=== PATIENT | male | born 1965 | race Caucasian/White ===

== ENCOUNTER 2019-12-04 09:29 | Inpatient (IN) | payer OTHER, SELFPAY ==
[2019-12-04] VITALS (14 sets, daily range): BP systolic 122–173; BP diastolic 72–104; PULSE 71–84; RESP 11–20; TEMP 36.5–36.9; O2SAT 93–99
--- NOTE | 2019-12-04 | ECHO_ITS ---
Patient Info Name: Kalpesh Adams Age: 54 years : 1965 Gender: Male Ht: 75 in Wt: 276 lbs BSA: 2.61 m2 HR: 69 bpm BP: 138 / 72 mmHg Heart Rhythm: Sinus Rhythm Technical Quality: Good Exam Date: 12/04/2019 1:29 PM Exam Location: [facility] Patient Status: Inpatient Admit Date: 12/04/2019 Staff Ordering Physician: Duy Durant MD [employer] Supervisor: Jovanni Garza RDCS Attending Provider: Duy Durant MD Exam Type: CA echo doppler color flow Study Info Indications R07.9 - Chest pain, unspecified Complete two-dimensional, color flow and Doppler transthoracic echocardiogram is performed. History/Risk Factors Chest pain; HTN, CAD, murmur. Summary 1. Left ventricular systolic function is normal, estimated at 65-70%. 2. The left ventricular diastolic function is normal. Left Ventricle Left ventricular chamber dimension is normal. Left ventricular systolic function is normal, estimated at 65-70%. There is no increased left ventricular wall thickness. Left ventricular septal wall motion is normal. The left ventricular diastolic function is normal. Right Ventricle Right ventricular chamber dimension is normal. Right ventricular systolic function is normal. Left Atria Left atrial chamber dimension is normal. Right Atria Right atrial chamber dimension is normal. Aortic Valve The aortic valve is trileaflet. There is no aortic valve sclerosis. There is no aortic valve stenosis. There is no aortic valve regurgitation. Pulmonic Valve The pulmonic valve is normal. There is no pulmonic valve stenosis. There is no pulmonic regurgitation. Mitral Valve The mitral valve has normal leaflets. There is no mitral valve stenosis. There is no mitral valve regurgitation. Tricuspid Valve The tricuspid valve leaflets are normal. There is no significant tricuspid valve stenosis. There is no tricuspid valve regurgitation. Pericardium/Pleural The pericardium appears normal. There is no pericardial effusion. Aorta The aortic root size at the sinus of Valsalva is normal. The prox ascending aorta size is normal. Left Ventricular Outflow Tract Name Value Normal LVOT 2D LVOT Diameter 2.0 cm LVOT Doppler LVOT Peak Gradient 5 mmHg LVOT Mean Gradient 3 mmHg LVOT VTI 22 cm LVOT VTI/AV VTI Ratio 0.9 LVOT Stroke Volume 66 ml LVOT CO 4.6 l/min LVOT CI 1.8 l/min/m2 Mitral Valve Name Value Normal MV Doppler MV Decel [place] 330 cm/s2 MV PHT 52 ms MV Area (PHT) 4.2 cm2 4.0-5.0 MV Diastolic Function
--- NOTE | ~2019-12-04 | XR_ITS ---
EXAMINATION: XR chest 2V EXAM DATE: 12/04/2019 10:02 INDICATION: Mid chest pain. TECHNIQUE: Frontal and lateral projections of the chest obtained and reviewed. Comparison is made to prior examination from 11/23/2016. FINDINGS: The lungs are clear. There are no pleural effusions. The cardiomediastinal silhouette is within normal limits. There is no pneumothorax suspected. Some bridging lower thoracic endplate ost eophytes. IMPRESSION: No acute cardiopulmonary findings. Reviewed, dictated and finalized at location A.
--- NOTE | 2019-12-04 09:34 | ECG_ITS ---
Measurements Intervals [place] Rate: 78 P: 16 NE: 117 QRS: -22 QRSD: 114 T: 76 QT: 341 QTc: 390 Interpretive Statements SINUS RHYTHM WITH SHORT NE INTERVAL INTRAVENTRICULAR CONDUCTION DELAY NONSPECIFIC ST & T-WAVE ABNORMALITY- LATERAL LEADS BASELINE ARTIFACT- I, II, III, AVR, AVL, AVF BORDERLINE ECG Electronically Signed On 12-04-2019 9:56:15 CDT by Nelson Escobar D.O.
[2019-12-04 09:50] LABS: Basophils Absolute Auto 0.1 K/mm3 (0.0-0.1); Basophils Percent Auto 0.9 % (0.2-1.2); Eosinophils Absolute Auto 0.5 K/mm3 (0-0.3); Eosinophils Percent Auto 5.5 % (0-4.4); Hematocrit 44.8 % (42.0-52.0); Hemoglobin 15.8 g/dL (14.0-18.0); Immature Granulocyte Absolute 0.03 K/mm3 (0.00-0.031); Immature Granulocyte Percent A 0.3 % (0-0.5); Lymphocytes Absolute Auto 3.71 K/mm3 (0.9-3.2); Lymphocytes Percent Auto 41.2 % (18.3-44.2); Mean Corpuscular HGB Conc 35.3 g/dl (32-36); Mean Corpuscular Hemoglobin 30.7 pg (26-34); Mean Corpuscular Volume 87.2 fl (80-100); Mean Platelet Volume 9.6 fl (7.4-10.4); Monocytes Absolute Auto 0.9 K/mm3 (0.1-0.6); Monocytes Percent Auto 10.4 % (2.6-8.5); Neutrophils Absolute Auto 3.8 K/mm3 (1.3-6.7); Neutrophils Percent Auto 41.7 % (45.5-73.1); Platelet Count Result 236 k/mm3 (150-375); Red Blood Count 5.14 M/mm3 (4.6-6.20); Red Cell Distribution Width 12.8 % (11.5-14.5)
[2019-12-04 10:00] LABS: Prothrombin Time 12.9 Seconds (11.1-14.7)
[2019-12-04] MEDS: ASPIRIN 81 MG CHEWABLE TABLET 324 MG PO (10:00)
[2019-12-04 10:01] LABS: Blood Urea Nitrogen 16 mg/dL (9-20); Calcium 9.4 mg/dL (8.4-10.2); Carbon Dioxide 24 mmol/L (22-30); Chloride 104 mmol/L (98-107); Estimated CRCL calculation 146 ml/min; Estimated Glomerular Filt Rate > 60; Glucose 101 mg/dL (75-110); Potassium 3.8 mmol/L (3.4-5.0); Sodium 137 mmol/L (137-145)
--- NOTE | 2019-12-04 10:03 | ECG_ITS ---
Measurements Intervals [place] Rate: 75 P: 43 WI: 159 QRS: -28 QRSD: 99 T: 26 QT: 349 QTc: 392 Interpretive Statements SINUS RHYTHM BASELINE ARTIFACT- I, II, AVR, AVL, AVF NORMAL ECG Electronically Signed On 12-04-2019 10:44:23 CDT by Nelson Escobar D.O.
[2019-12-04 10:13] LABS: Troponin I < 0.012 ng/mL (0.000-0.034)
--- NOTE | 2019-12-04 10:19 | ED.CHESTPAIN ---
HPI - Chest Pain General Chief Complaint: Chest Pain Stated Complaint: cp Time Seen by Provider: 12/04/19 09:55 Source: patient Mode of arrival: ambulatory Limitations: no limitations History of Present Illness HPI narrative: This patient is a 54 year old male with h/o hypertension who presents for evalution of midsternal chest pressure that started 45 minutes ago. He states he was at rest when developed pressure in his chest that radiates to his back. He also reports he was sweating and his left arm feels numbness. He thinks it may be indigestion because he feels like he needs to belch. He was given aspirin 324 mg in ER today. He rates his pain 6/10. He denies previous history of MT and he had cardiac catherization 2 years ago. He states he was told he may have had less than 15 % blockage at that time. MD complaint: chest heaviness Onset (ago): minute(s) (45) Timing of current episode: constant Onset: during rest Pain location: substernal Pain radiation: back Pain scale (0-10): 6 Quality: heaviness Relieving factors: nothing Exacerbating factors: nothing Risk Factors Coronary artery disease risk factors: hypertension Related Data Home Medications Medication Instructions Recorded Confirmed fish,bora,flax oils-om3,6,9no1 1 cap PO DAILY 12/04/19 12/04/19 [Triple [place] 3-6-9] hydrochlorothiazide 25 mg PO DAILY 12/04/19 12/04/19 magnesium oxide 400 mg PO DAILY 12/04/19 12/04/19 metoprolol succinate 50 mg PO DAILY 12/04/19 12/04/19 pantoprazole 40 mg PO DAILY 12/04/19 12/04/19 rosuvastatin 10 mg PO EVERY OTHER DAY 12/04/19 12/04/19 spironolactone 25 mg PO DAILY 12/04/19 12/04/19 Allergies Allergy/AdvReac Type Severity Reaction Status Date / Time No Known Allergies Allergy Verified 12/04/19 12:25 Review of Systems Review of Systems: All systems reviewed & are unremarkable except as noted in HPI and below Constitutional: Constitutional: Denies chills, Reports excessive sweating and Denies fever(s) Cardiovascular: Cardiovascular: Reports chest pain Respiratory: Respiratory: Denies cough, Reports dyspnea and Denies wheezing Gastrointestinal: Gastrointestinal: Denies abdominal pain, Denies diarrhea, Denies nausea and Denies vomiting PMFSH Past Medical History Medical History (Updated 12/04/19 @ 11:20 by Duy Durant MD) Hypertension Surgical History Surgical History (Updated 12/04/19 @ 10:19 by Nadira Cody MD) H/O cardiac catheterization Social History Social History Smoking packs per day: 0.5 Smoking cigarettes per day: 10.0 Years smoked: 20 Smoking pack-years: 10.00 Smoking status: Former smoker Tobacco type: cigarettes Second hand tobacco smoke exposure: Yes Alcohol intake: current Gender identity (if verbalized by the patient): Male Exam Narrative: Exam Narrative: GENERAL: Well-appearing, well-nourished, and in no acute distress. HEAD: Normocephalic, atraumatic EYES: PERRLA and EOMI, conjunctiva clear without discharge NECK: Supple, without lymphadenopathy or mass RESPIRATORY: No respiratory distress, Airway patent, Respirations non-labored, Clear to auscultation without rales, rhonchi or wheeze HEART: Regular rate and rhythm. No murmur heard. Normal peripheral pulses. ABDOMEN: Soft, nontender, nondistended, normal active bowel sounds. No masses. No rebound or guarding, No organomegaly. EXTREMITIES: No edema, normal strength with full range of motion. SKIN: Warm, dry, normal color without rash NEURO: Alert and oriented x3. CN 2-12 grossly intact. No focal deficits. PSYCH: Normal mood and affect. Course Reevaluation(s) Reevaluation #1: Patient was given SL nitroglycerin x 1 and his chest pain resolved. I discussed evaluation unremarkable currently but I recommend observation in chest pain center. Patient is agreeable Date: 12/04/19 Time: 11:07 Consultations Consultation #1: I discussed case with Dr. Durant who accepts patient to [facility]
[2019-12-04] MEDS: NITROGLYCERIN SL 0.4 MG TABLET SUBLINGUAL ×4 (10:21→20:16)
--- NOTE | 2019-12-04 10:36 | PC.NURSE ---
PT REPORTS THAT HIS CP IS RESOLVED, BUT THERE IS STILL SOME RESIDUAL PRESSURE. PT STATES HE DOES NOT WANT ANY MORE NITRO. ERP INFORMED, NO NEW ORDERS.
--- NOTE | 2019-12-04 10:55 | PC.NURSE ---
REPORT GIVEN TO RUY MORFIN AT BEDSIDE, PT HAS NO COMPLAINTS, SHE HAS ASSUMED PT CARE.
--- NOTE | 2019-12-04 11:19 | PM.IMHP ---
H&P: HPI History of Present Illness Chief complaint: Chest Pain Narrative: Kalpesh Adams is a 54 year old male with history of dyslipidemia, was admitted to the hospital as he came in with chest pain, mostly central chest pain with radiation to the left side, so far cardiac enzymes are negative, EKG is unremarkable. He had a cath in 2017 with mild CAD. His pain is central, but he had diaphoresis, and left arm numbness PMFSH Past Medical History Medical History (Updated 12/04/19 @ 11:20 by Duy Durant MD) Hypertension Surgical History Surgical History (Updated 12/04/19 @ 10:19 by Nadira Cody MD) H/O cardiac catheterization Social History Social History Smoking packs per day: 0.5 Smoking cigarettes per day: 10.0 Years smoked: 20 Smoking pack-years: 10.00 Smoking status: Former smoker Tobacco type: cigarettes Second hand tobacco smoke exposure: Yes Alcohol intake: current Gender identity (if verbalized by the patient): Male Meds Home Medications and Allergies Home Medications Medication Instructions Recorded Confirmed Type fish,bora,flax oils-om3,6,9no1 1 cap PO DAILY 12/04/19 12/04/19 History [Triple [place] 3-6-9] hydrochlorothiazide 25 mg PO DAILY 12/04/19 12/04/19 History magnesium oxide 400 mg PO DAILY 12/04/19 12/04/19 History metoprolol succinate 50 mg PO DAILY 12/04/19 12/04/19 History pantoprazole 40 mg PO DAILY 12/04/19 12/04/19 History rosuvastatin 10 mg PO EVERY OTHER DAY 12/04/19 12/04/19 History spironolactone 25 mg PO DAILY 12/04/19 12/04/19 History Allergies Allergy/AdvReac Type Severity Reaction Status Date / Time No Known Allergies Allergy Verified 12/04/19 12:25 Vital Signs Vital Signs - 24 hr 12/04/19 09:35 12/04/19 10:05 12/04/19 10:16 Temperature 36.5 C Pulse Rate 77 84 77 Respiratory Rate 13 13 Blood Pressure 173/104 H 140/96 H Pulse Oximetry 97 97 12/04/19 10:37 12/04/19 11:17 Temperature Pulse Rate 79 77 Respiratory Rate 11 L 20 Blood Pressure 122/86 128/87 Pulse Oximetry 96 99 Exam Narrative: Exam Narrative: Awake alert oriented x3 not in acute distress Neck is supple no obvious JVD, no carotid bruit Chest: Good air entry bilaterally, lungs are clear to auscultation and percussion bilaterally Cardiovascular: Regular rate and rhythm, 2/6 systolic murmur noted left sternal border Abdomen: Soft nontender bowel sounds positive Extremities: No edema has good pulses distally bilaterally H&P: Results Labs Labs: Short CBC 12/04/19 Range/Units 09:44 WBC 9.0 (4.5-10.0) K/mm3 Hgb 15.8 (14.0-18.0) g/dL Hct 44.8 (42.0-52.0) % Plt Count 236 (150-375) k/mm3 BMP 12/04/19 09:44 Sodium 137 Potassium 3.8 Chloride 104 Carbon Dioxide 24 BUN 16 Creatinine 0.70 Glucose 101 Calcium 9.4 Cardiac Enzymes 12/04/19 Range/Units 09:44 Troponin I < 0.012 (0.000-0.034) ng/mL Assessment and Plan Assessment and plan (1) Chest pain: Qualifiers: Chest pain type: unspecified Qualified Code(s): R07.9 - Chest pain, unspecified Code(s): R07.9 - Chest pain, unspecified Status: Acute Assessment and Plan: He has significant risk factors for coronary disease, follow-up cardiac enzymes, so far negative enzymes and negative EKG, will consider stress test in the morning, unless enzymes became positive then we change the plan to possible cardiac catheterization (2) Dyslipidemia: Code(s): E78.5 - Hyperlipidemia, unspecified Status: Acute Assessment and Plan: Will check lipid profile and treat accordingly (3) Hypertension: Code(s): I10 - Essential (primary) hypertension Status: Acute
[2019-12-04 11:53] LABS: Cholesterol 176 mg/dL (0-200); HDL Direct 28 mg/dL; Triglycerides 219 mg/dL (<150)
[2019-12-04 11:55] LABS: D Dimer 0.17 ug/mL (<0.48)
[2019-12-04 12:03] LABS: LDL Cholesterol Direct 92 mg/dL
[2019-12-04] MEDS: HEPARIN SOD/D5W 100 UNITS/ML 25,000 UNITS/250 ML BAG 10 UNITS IV CONT (14:19)
[2019-12-04] MEDS: HEPARIN SODIUM 5,000 UNITS/ML VIAL 4000 UNITS IV PUSH ×2 (14:19→20:44)
--- NOTE | 2019-12-04 17:24 | ECG_ITS ---
Measurements Intervals [place] Rate: 67 P: 52 TN: 173 QRS: -32 QRSD: 102 T: 35 QT: 405 QTc: 430 Interpretive Statements SINUS RHYTHM LEFT AXIS DEVIATION RSR' IN V1 OR V2, CONSIDER RIGHT VENTRICULAR HYPERTROPHY OR RIGHT VCD NONSPECIFIC T-WAVE ABNORMALITY- INFERIOR LEADS BORDERLINE ECG Electronically Signed On 12-05-2019 6:57:37 CDT by Nelson Escobar D.O.
[2019-12-04 20:36] LABS: Partial Thromboplastin Time 35.5 SECONDS (22.3-36.8)
[2019-12-05] VITALS (22 sets, daily range): BP systolic 118–145; BP diastolic 77–95; PULSE 61–97; RESP 14–20; TEMP 36.3–36.7; O2SAT 94–100
[2019-12-05 02:56] LABS: Basophils Absolute Auto 0.1 K/mm3 (0.0-0.1); Basophils Percent Auto 0.8 % (0.2-1.2); Eosinophils Absolute Auto 0.5 K/mm3 (0-0.3); Eosinophils Percent Auto 5.7 % (0-4.4); Hematocrit 43.3 % (42.0-52.0); Hemoglobin 14.7 g/dL (14.0-18.0); Immature Granulocyte Absolute 0.05 K/mm3 (0.00-0.031); Immature Granulocyte Percent A 0.6 % (0-0.5); Lymphocytes Absolute Auto 2.78 K/mm3 (0.9-3.2); Lymphocytes Percent Auto 31.5 % (18.3-44.2); Mean Corpuscular HGB Conc 33.9 g/dl (32-36); Mean Corpuscular Hemoglobin 29.9 pg (26-34); Mean Corpuscular Volume 88.2 fl (80-100); Mean Platelet Volume 9.7 fl (7.4-10.4); Monocytes Absolute Auto 0.8 K/mm3 (0.1-0.6); Monocytes Percent Auto 8.5 % (2.6-8.5); Neutrophils Absolute Auto 4.7 K/mm3 (1.3-6.7); Neutrophils Percent Auto 52.9 % (45.5-73.1); Platelet Count Result 234 k/mm3 (150-375); Red Blood Count 4.91 M/mm3 (4.6-6.20); Red Cell Distribution Width 12.9 % (11.5-14.5); White Blood Count 8.8 K/mm3 (4.5-10.0)
[2019-12-05 03:01] LABS: Partial Thromboplastin Time 63.6 SECONDS (22.3-36.8)
[2019-12-05] MEDS: HEPARIN SODIUM 5,000 UNITS/ML VIAL 4000 UNITS IV PUSH (03:06)
[2019-12-05] MEDS: HEPARIN SOD/D5W 100 UNITS/ML 25,000 UNITS/250 ML BAG 16 UNITS IV CONT (08:41)
[2019-12-05] MEDS: ASPIRIN 81 MG CHEWABLE TABLET PO (09:00)
[2019-12-05 09:19] LABS: Partial Thromboplastin Time 63.2 SECONDS (22.3-36.8)
--- NOTE | 2019-12-05 10:11 | PC.NURSE ---
Patient verbally requested to be seen by the [facility]. Patient verbally requested to be removed from Dr. Durant's service.
--- NOTE | 2019-12-05 10:36 | PM.CNCAR ---
Assessment and Plan Assessment and plan (1) Non-ST elevation IA (NSTEMI): Code(s): I21.4 - Non-ST elevation (NSTEMI) myocardial infarction Status: Acute Assessment and Plan: 54-year-old male with past medical history of hypertension, dyslipidemia; history of tobacco abuse. Patient presented to hospital with anginal chest pain, EKG showed T-wave abnormalities in the inferolateral leads, and troponins are significantly elevated consistent with non ST elevation IA. Patient will undergo early invasive strategy with coronary angiogram with an eye towards intervention as necessary. Addendum- Patient underwent cardiac catheterization which showed slightly sluggish blood flow in the LAD; no significant obstructive disease in the major epicardial vessels. LV systolic function is hyperdynamic with ejection fraction more than 70%. Possible etiologies for patient's chest pain and significant troponin elevation include spontaneous thrombolysis of the clot, myopericarditis, coronary vasospasm, microvascular dysfunction etc. Since we are in the middle of COVID-19 pandemic which is known to affect cardiovascular system, it would be appropriate to check the patient for possible COVID-19 infection. Echocardiogram with Doppler is pending. If there is suggestion of pericarditis, then would initiate patient on colchicine. If no suggestion of pericarditis, then would recommend dual antiplatelet therapy with aspirin and clopidogrel for 3-6 months, in addition to other medications including beta-tico, statin. (2) Hypertension: Code(s): I10 - Essential (primary) hypertension Status: Acute (3) Dyslipidemia: Code(s): E78.5 - Hyperlipidemia, unspecified Status: Acute History of Present Illness History of Present Illness Consult date/time: 12/05/19 10:36 Date of consult: 12/04/2021 Reason for consult: Chest pain, elevated cardiac biomarkers Requesting physician:Dr. Cody Chief complaint: Chest pain HPI: 54-year-old male with hypertension, dyslipidemia, history of tobacco abuse. Patient was admitted to [facility] on on 12/04/2019 with complaints of substernal chest discomfort that started about 60 minutes prior to the arrival. He described the chest pain as sharp sensation in the substernal area with radiation to back, associated with shortness of breath, diaphoresis and left arm numbness. His EKG on presentation which I personally evaluated showed sinus rhythm, nonspecific ST-T abnormality in leads 1 and aVL. Follow-up EKG showed evolving T-wave abnormality in the inferior leads. Patient's 1st set of troponin was negative, 2nd set was mildly elevated at 0.71, and 3rd set is significantly elevated at 6.12 consistent with a non ST elevation IA. Chest x-ray is unremarkable. Patient had 1 more episode of chest discomfort last night. At the time of evaluation, he was asymptomatic. I was asked by my nurse practitioner to evaluate the patient after patient's family requested for our group to manage the patient. Patient denies history of clinical IA, however, he states that he had cardiac catheterization done about 2 years ago at [facility] in the setting of what he described as diaphoresis and palpitations. He states that he was found to have mild nonobstructive CAD. Previous cardiac catheterization report is not available. Reason For Visit: Chest Pain Review of Systems Constitutional: Constitutional: Denies chills, Denies fatigue, Denies fever(s) and Denies headache(s) Eyes: Eyes: Reports as per HPI, Denies change in vision, Denies loss of vision and Denies eye pain ENT: Reports as per HPI, Reports Normal hearing present, Denies headache(s), Denies lip swelling, Denies epistaxis and Denies sore throat Cardiovascular: Cardiovascular: Reports as per HPI, Reports chest pain, Denies syncope, Denies irregular heart rhythm, Denies lightheadedness and Reports dyspnea Respiratory: Respiratory:
--- NOTE | 2019-12-05 10:44 | WPDCARDPROC ---
Cardiac Cath Procedure Note Date of procedure:: 12/05/19 Performing physician:: Salomon Ribeiro MD Procedure Procedure note:: LEFT HEART CATHETERIZATION AND CORONARY ANGIOGRAM DATE OF PROCEDURE: 12/05/2019 INDICATION FOR PROCEDURE: Chest pain, elevated troponins BRIEF CLINICAL HISTORY: 54-year-old male with hypertension, dyslipidemia, history of tobacco abuse. Patient was admitted to [facility] on on 12/04/2019 with complaints of substernal chest discomfort that started about 60 minutes prior to the arrival. His chest discomfort radiated back, associated with shortness of breath, diaphoresis and left arm numbness. His EKG on presentation which I personally evaluated showed sinus rhythm, nonspecific ST-T abnormality in leads 1 and aVL. Follow-up EKG showed evolving T-wave abnormality in the inferior leads. Patient's 1st set of troponin was negative, 2nd set was mildly elevated at 0.71, and 3rd set is significantly elevated at 6.[address] elevation CA. Patient was brought to the foundry laborer coreroom for early invasive management to rule out significant obstructive CAD. Benefits and risks of the procedure were discussed with the patient in depth, and informed consent was obtained prior to the procedure. Risks of the procedure include but are not limited to vascular complications including groin hematoma, retroperitoneal bleed, vessel perforation; periprocedural CA, cardiac arrhythmias, stroke, contrast induced nephropathy, and . After discussing all the benefits, risks and alternatives, patient was willing to proceed with the procedure. PROCEDURES PERFORMED: 1. Left heart catheterization- Selective left and right coronary angiogram; left ventriculogram and hemodynamic assessment 2. Percutaneous coronary intervention- 3. Selective right common femoral angiogram and deployment of Angio-Seal hemostatic device 4. Moderate sedation-CPT code 52954 MODERATE SEDATION: Midazolam 2 mg; fentanyl 50 mcg. Start time 1054 , Stop time 1121 ; Total [id number] time 27 minutes; Negin Dupree RN was trained observer for moderate sedation. ACCESS SITE: Right common femoral artery PROCEDURE NOTE: After obtaining informed consent, patient was brought to catheterization lab and prepped and draped in a usual sterile manner. After local anesthesia with lidocaine, right common femoral artery access was taken with micropuncture needle followed by insertion of a 6 Niuean sheath. Selective left and right coronary angiogram was performed using 5 Niuean JL4 and JR4 catheters respectively. Orthogonal views were taken. Next, a 5 Niuean pigtail catheter was advanced in the LV cavity and was flushed with normal saline. LV pressure measurement was performed. After this, left ventriculogram was performed. The catheter was flushed again, and gradient across the aortic valve was measured on the pullback of the catheter. Selective right common femoral angiogram was performed after PCI followed by successful deployment of Angio-Seal vascular closure device. Patient tolerated procedure well without any immediate procedure related complications. FINDINGS: LEFT MAIN CORONARY: the left main coronary is a medium to large caliber vessel, no significant focal stenosis. The vessel bifurcates into LAD and left circumflex branches. LEFT ANTERIOR DESCENDING ARTERY: The LAD is a medium caliber vessel, mildly tortuous, tapers distally, becomes a very small caliber vessel and barely reaches LV apex. There is sluggish blood flow in the LAD, however, no focal stenosis or myocardial bridging is seen. Diagonal branch is a medium-sized vessel without significant focal stenosis. LEFT CIRCUMFLEX ARTERY: The left circumflex artery is a medium-sized vessel, gives rise to OM1, OM2 and OM3 branches which are medium-sized vessels without significant focal stenosis. The main LCX is a small-caliber vessel, and continues in the AV groove. RIGHT CORONARY ARTERY: The right coronary
--- NOTE | 2019-12-05 10:58 | WPDMODSED ---
Moderate Sedation Note-Pt Data Patient Data Allergies Allergy/AdvReac Type Severity Reaction Status Date / Time No Known Allergies Allergy Verified 12/04/19 12:25 Home Medications Medication Instructions Recorded Confirmed Type fish,bora,flax oils-om3,6,9no1 1 cap PO DAILY 12/04/19 12/04/19 History [Triple [place] 3-6-9] hydrochlorothiazide 25 mg PO DAILY 12/04/19 12/04/19 History magnesium oxide 400 mg PO DAILY 12/04/19 12/04/19 History metoprolol succinate 50 mg PO DAILY 12/04/19 12/04/19 History pantoprazole 40 mg PO DAILY 12/04/19 12/04/19 History rosuvastatin 10 mg PO EVERY OTHER DAY 12/04/19 12/04/19 History spironolactone 25 mg PO DAILY 12/04/19 12/04/19 History Current Medications: Active Medications Aspirin (Aspirin Chewable) 81 mg PO DAILY@0800 [facility] Last Admin: 12/05/19 09:00 Dose: 81 mg Documented by: Heparin Sodium (Porcine) (Heparin Sodium) 4,000 units IV PUSH PRN PRN PRN Reason: aPTT less than 55 seconds Last Admin: 12/04/19 20:44 Dose: 4,000 units Documented by: Heparin Sodium (Porcine) (Heparin Sodium) 4,000 units IV PUSH PRN PRN PRN Reason: aPTT 55 - 70 seconds Last Admin: 12/05/19 03:06 Dose: 4,000 units Documented by: Heparin Sodium/Dextrose (Heparin Sodium/D5w 100 Units/Ml) 25,000 units in 250 mls @ 16 mls/hr IV CONT .[id number] [facility]; Protocol Last Admin: 12/05/19 08:41 Dose: 1,600 units/hr, 16 mls/hr Documented by: Nitroglycerin (Nitrostat Subl 0.4 Mg (1/150)) 0.4 mg SUBLINGUAL Q5MIN PRN PRN Reason: Chest Pain Last Admin: 12/04/19 20:16 Dose: 0.4 mg Documented by: Ondansetron HCl (Zofran Inj) 4 mg IV PUSH Q4H PRN PRN Reason: Nausea Sedation/Anesthesia: No previous sedation/anesthesia problems (including family history). [facility] Past Medical History Medical History Hypertension Surgical History Surgical History H/O cardiac catheterization Family History Family History Mother Hypertension Patient's mother is in good health Cerebrovascular accident Sibling Patient's sister is in good health Patient's brother is in good health Father Family history of lung cancer Social History Social History Smoking packs per day: 0.5 Smoking cigarettes per day: 10.0 Years smoked: 20 Smoking pack-years: 10.00 Smoking status: Former smoker Tobacco type: cigarettes Second hand tobacco smoke exposure: Yes Alcohol intake: current Gender identity (if verbalized by the patient): Male Mod Sed Physical Exam Physical Exam Pre Procedural Exam: Normal: Airway Hours since solid foods: 10 Hours since liquid intake: 10 Internal Medicine - PN: Obj Da Vital Signs Vital Signs: Vital Signs - 24 hr 12/04/19 11:17 12/04/19 12:21 12/04/19 12:28 Temperature Pulse Rate 77 79 Respiratory Rate 20 18 Blood Pressure 128/87 138/72 Pulse Oximetry 99 99 12/04/19 14:00 12/04/19 16:00 12/04/19 18:00 Temperature 36.8 C Pulse Rate 78 71 82 Respiratory Rate 18 Blood Pressure 124/83 Pulse Oximetry 98 12/04/19 19:14 12/04/19 20:00 12/04/19 20:30 Temperature 36.9 C Pulse Rate 74 74 79 Respiratory Rate 18 Blood Pressure 128/80 Pulse Oximetry 98 93 12/04/19 21:57 12/05/19 00:00 12/05/19 02:00 Temperature 36.7 C Pulse Rate 74 64 66 Respiratory Rate 20 Blood Pressure 145/84 H Pulse Oximetry 97 12/05/19 03:00 12/05/19 03:55 12/05/19 04:00 Temperature 36.6 C Pulse Rate 75 75 65 Respiratory Rate 20 Blood Pressure 127/88 Pulse Oximetry 94 98 12/05/19 06:00 12/05/19 08:00 Temperature 36.3 C L Pulse Rate 71 75 Respiratory Rate 16 Blood Pressure 134/83 Pulse Oximetry 95 Intake/Output Intake/Output: Intake & Output 12/02/19 12/03/19 12/04/19 12/05/19 23:59 23:59 23:59 23:59 Intake Total 4
--- NOTE | 2019-12-05 14:08 | PC.NURSE ---
This patient, Kalpesh Adams, was transferred to [ICU 3 ] on 12/05/19 at 1408. Personal belongings sent with patient. Belongings list checked and signed with receiving [yes ]. Report given to [ Vangie Kern]. Appropriate documentation sent with patient.
[2019-12-05] MEDS: PANTOPRAZOLE 40 MG TABLET PO (17:25)
[2019-12-05] MEDS: CLOPIDOGREL BISULFATE 75 MG TABLET PO (17:26)
[2019-12-05 18:12] LABS: Glucose Point of Care 98 (65-105)
[2019-12-05] MEDS: METOPROLOL TARTRATE 25 MG TABLET PO (20:42)
[2019-12-06] VITALS (12 sets, daily range): BP systolic 128–129; BP diastolic 83–97; PULSE 55–70; RESP 16–23; TEMP 35.5–36.4; O2SAT 99–100
[2019-12-06] MEDS: ASPIRIN 81 MG CHEWABLE TABLET PO (08:57)
[2019-12-06] MEDS: METOPROLOL TARTRATE 25 MG TABLET PO (08:58)
[2019-12-06] MEDS: CLOPIDOGREL BISULFATE 75 MG TABLET PO (08:58)
[2019-12-06] MEDS: ROSUVASTATIN 10 MG TABLET 20 MG PO (08:59)
[2019-12-06] MEDS: LOSARTAN POTASSIUM 25 MG TABLET PO (08:59)
[2019-12-06] MEDS: PANTOPRAZOLE 40 MG TABLET PO (08:59)
[2019-12-06 14:16] LABS: SARS-CoV-2 RNA PCR Negative
--- NOTE | 2019-12-06 14:52 | PM.DS ---
DS: Admitting Diagnosis Admitting Diagnosis Admitting Diagnosis: Chest pain, unspecified DS: Discharge Diagnosis Discharge Diagnosis (1) Non-ST elevation MO (NSTEMI): Code(s): I21.4 - Non-ST elevation (NSTEMI) myocardial infarction Status: Acute Assessment and Plan: Cardiac catheterization 12/05/2019: slightly sluggish blood flow in the LAD; no significant obstructive disease in the major epicardial vessels. LV systolic function is hyperdynamic with ejection fraction more than 70%. Possible etiologies for his chest pain and significant troponin elevation include spontaneous thrombolysis of the clot, myopericarditis, coronary vasospasm, microvascular dysfunction etc. Since we are in the middle of COVID-19 pandemic which is known to affect cardiovascular system, he was checked for COVID-19 which was negative. Echocardiogram revealed normal left ventricular systolic function estimated 65-70%. Left ventricular diastolic function was normal. Pericardium was normal. No pericardial effusion. He was started on clopidogrel along with aspirin beta-tico and statin. (2) Hypertension: Code(s): I10 - Essential (primary) hypertension Status: Acute Assessment and Plan: At goal. Continue metoprolol succinate 50 mg daily and losartan 25 mg daily. (3) Dyslipidemia: Code(s): E78.5 - Hyperlipidemia, unspecified Status: Acute Assessment and Plan: Lipid panel 12/04/2019: Triglycerides 219, total cholesterol 176, LDL 92, HDL direct 28. Continue rosuvastatin 20 mg daily. DS: Summary Hospital Course Reason for hospitalization: Chest pain Hospital Course: 54-year-old male with past medical history of hypertension, dyslipidemia and remote tobacco use presented to the hospital with anginal chest pain. EKG showed T-wave abnormalities in the inferolateral leads. Troponin was significantly elevated consistent with non ST elevation MO. He was taken to the cardiac catheterization lab by Dr Ribeiro on 12/05/2019 with the findings of: slightly sluggish blood flow in the LAD; no significant obstructive disease in the major epicardial vessels. LV systolic function is hyperdynamic with ejection fraction more than 70%. Possible etiologies for his chest pain and significant troponin elevation included spontaneous thrombolysis of the clot, myopericarditis, coronary vasospasm, microvascular dysfunction etc. Since we are in the middle of COVID-19 pandemic which is known to affect cardiovascular system, he was checked for COVID-19. This was negative. Echocardiogram revealed normal left ventricular systolic function estimated 65-70%. Left ventricular diastolic function was normal. Pericardium was normal with no pericardial effusion. He was started on clopidogrel along with aspirin beta-tico and statin. He was monitored overnight with no further symptoms. No arrhythmias. Vital signs were stable. Right groin site without swelling or bleeding. No femoral bruit. Distal pulses intact. He was discharged home in stable and pain-free condition. This document was completed by using [employer] Direct speech recognition software, therefore, cylinder sander operator variances may occur. Status at Discharge Functional status at discharge: independent ambulation Overall status at discharge: patient is back to baseline Time Spent with Patient Time attestation: Total time spent providing and/or coordinating discharge services: 35 minutes Time spent: Greater than 30 minutes Exam Const: General: no acute distress, alert and awake HENMT: Head: normocephalic and atraumatic Ears: hearing grossly normal bilaterally and external ears normal General nose exam: Normal external nose present and no epistaxis Face and sinus: normal facial exam and no ecchymosis Mouth: Yes moist mucous membranes Eyes: Conjunctivae: con
== END 2019-12-06 15:15 | disposition home or self-care (01) | DRG 282 ==
LOC: ANHED 11:31 → ANHIMU 11:53 → ANHICU 12-05 13:51
PROVIDERS: Internal Medicine Cardiovascular Disease; Admitting Provider Specialist; Emergency Provider General Practice; PCP Family Medicine; Visit Provider Internal Medicine Cardiovascular Disease
PROC: 4A023N7 Measurement of Cardiac Sampling and Pressure, Left Heart, Percutaneous Approach (ICD-10-PCS; CPT 93452; principal; 2019-12-05 13:00)
PROC: 4A023N7 Measurement of Cardiac Sampling and Pressure, Left Heart, Percutaneous Approach (ICD-10-PCS; 2019-12-05 13:00)
DX: I21.4 Non-ST elevation (NSTEMI) myocardial infarction (principal); I10 Essential (primary) hypertension; E78.5 Hyperlipidemia, unspecified; Z20.828 Contact with and (suspected) exposure to other viral communicable diseases; Z87.891 Personal history of nicotine dependence
CPT/HCPCS: 36415; 71046; 80048; 80061; 84484; 85025; 85380; 85610; 85730; 87635; 93005; 93306; 93458; 96365; 96366; 99285; A9270; C1760; C1887; C1894; C9803; G0269; G0378; J1644; J2250; J3010; J7040; U0003

== ENCOUNTER 2020-01-15 10:02 | Outpatient (CLI) | payer OTHER, SELFPAY ==
[2020-01-15 10:50] LABS: Basophils Absolute Auto 0.1 K/mm3 (0.0-0.1); Eosinophils Absolute Auto 0.4 K/mm3 (0-0.3); Eosinophils Percent Auto 6.8 % (0-4.4); Hematocrit 41.8 % (42.0-52.0); Hemoglobin 14.2 g/dL (14.0-18.0); Immature Granulocyte Absolute 0.02 K/mm3 (0.00-0.031); Immature Granulocyte Percent A 0.3 % (0-0.5); Lymphocytes Absolute Auto 2.32 K/mm3 (0.9-3.2); Lymphocytes Percent Auto 40.4 % (18.3-44.2); Mean Corpuscular Hemoglobin 30.3 pg (26-34); Mean Corpuscular Volume 89.1 fl (80-100); Mean Platelet Volume 9.6 fl (7.4-10.4); Monocytes Absolute Auto 0.5 K/mm3 (0.1-0.6); Monocytes Percent Auto 9.2 % (2.6-8.5); Neutrophils Absolute Auto 2.4 K/mm3 (1.3-6.7); Neutrophils Percent Auto 42.3 % (45.5-73.1); Platelet Count Result 226 k/mm3 (150-375); Red Blood Count 4.69 M/mm3 (4.6-6.20); Red Cell Distribution Width 12.9 % (11.5-14.5); White Blood Count 5.7 K/mm3 (4.5-10.0)
[2020-01-15 11:04] LABS: Alanine Aminotransferase 54 U/L (4-50); Albumin Level 4.5 g/dL (3.5-5.1); Alkaline Phosphatase 57 U/L (38-126); Aspartate Amino Transferase 38 U/L (17-59); Bilirubin,Total 0.4 mg/dL (0.2-1.3); Blood Urea Nitrogen 16 mg/dL (9-20); Calcium 9.2 mg/dL (8.4-10.2); Carbon Dioxide 28 mmol/L (22-30); Chloride 106 mmol/L (98-107); Cholesterol 121 mg/dL (0-200); Estimated Glomerular Filt Rate > 60; Glucose 106 mg/dL (75-110); HDL Direct 31 mg/dL; Potassium 4.2 mmol/L (3.4-5.0); Sodium 141 mmol/L (137-145); Triglycerides 121 mg/dL (<150)
[2020-01-15 11:15] LABS: LDL Cholesterol Direct 68 mg/dL
[2020-01-15 11:34] LABS: Prostate Specific Antigen 0.6 ng/mL (< OR = 4.0)
[2020-01-15 11:51] LABS: Creatinine Urine 175.5 mg/dL
[2020-01-15 11:55] LABS: MALB Creatinine Ratio 5.7 mg/g (0-30)
[2020-01-15 12:58] LABS: Hepatitis C Virus Antibody Negative (Negative)
== END 2020-01-15 10:03 | disposition home or self-care (01) ==
PROVIDERS: PCP Family Medicine; Visit Provider Family Medicine
DX: Z00.00 Encounter for general adult medical examination without abnormal findings (principal); Z13.1 Encounter for screening for diabetes mellitus; Z13.0 Encounter for screening for diseases of the blood and blood-forming organs and certain disorders involving the immune mechanism; Z13.220 Encounter for screening for lipoid disorders; I10 Essential (primary) hypertension; Z12.5 Encounter for screening for malignant neoplasm of prostate; Z11.59 Encounter for screening for other viral diseases
CPT/HCPCS: 36415; 80053; 80061; 82043; 84153; 84443; 85025; 86803; G0103

== ENCOUNTER 2021-10-05 07:00 | Emergency (ER) | payer OTHER, SELFPAY ==
[2021-10-05 07:05] VITALS: BP 162/90; PULSE 90; RESP 16; TEMP 36.2; O2SAT 99
--- NOTE | 2021-10-05 07:42 | ED.BACK ---
HPI - Back Pain/Injury General Chief Complaint: Back Pain/Injury Stated Complaint: low back pain Time Seen by Provider: 10/05/21 07:19 Source: patient and RN notes reviewed History of Present Illness HPI Narrative: 56-year-old male presented to the emergency department for evaluation of right lower back pain that radiates down his right leg. Patient states approximately 1 week ago he was helping his son move and did feel a twinge in his right lower back. Patient states since that time he has had intermittent pain that radiates from his right buttock down his right lateral leg to his knee. Patient states pain is not past the knee. Patient only reports pain. Patient states he does not have any associated numbness or weakness. Patient denies ever having similar back pain. Patient has had no prior history of back surgeries. Patient denies any with urination or bowel movements. Patient has been taking ibuprofen for pain without significant movement. Patient states he was encouraged by his to get checked out today. Related Data Home Medications Medication Instructions Recorded Confirmed fish,bora,flax oils-om3,6,9no1 1 cap PO DAILY 12/04/19 12/04/19 [Triple [place] 3-6-9] magnesium oxide 400 mg PO DAILY 12/04/19 12/04/19 metoprolol succinate 50 mg PO DAILY 12/04/19 12/04/19 pantoprazole 40 mg PO DAILY 12/04/19 12/04/19 Allergies Allergy/AdvReac Type Severity Reaction Status Date / Time No Known Allergies Allergy Verified 10/05/21 07:45 Review of Systems Review of Systems: CONSTITUTIONAL: Denies fever, chills, or sweats. EYES: Denies visual changes, redness, or discharge. ENT: Denies rhinorrhea, congestion, sore throat, or otalgia. CARDIOVASCULAR: Denies chest pain, palpitations, or edema. RESPIRATORY: Denies cough or dyspnea. GASTROINTESTINAL: Denies abdominal pain, nausea, vomiting, or diarrhea. GENITOURINARY: Denies dysuria or hematuria. SKIN: Denies rash or itching. MUSCULOSKELETAL: Right lower back pain that radiates to his right leg. NEUROLOGIC: Denies headache, numbness, or weakness. [facility] Past Medical History Medical History (Updated 10/05/21 @ 07:42 by Vinh Mcintosh MD) Hypertension Surgical History Surgical History H/O cardiac catheterization Family History Family History Mother Hypertension Patient's mother is in good health Cerebrovascular accident Sibling Patient's sister is in good health Patient's brother is in good health Father Family history of lung cancer Social History Social History Smoking packs per day: 0.5 Smoking cigarettes per day: 10.0 Years smoked: 20 Smoking pack-years: 10.00 Smoking status: Former smoker Tobacco type: cigarettes Second hand tobacco smoke exposure: Yes Alcohol intake: current Gender identity (if verbalized by the patient): Male Exam Narrative: APPEARANCE: Well appearing, no pain, no distress, well-nourished. HEAD: normocephalic, atraumatic. EYES: PERRLA/EOMI, conjunctivae clear. NOSE: Normal no drainage NECK: Supple. No adenopathy, no masses. RESPIRATORY: Airway patent, respirations nonlabored. Clear to auscultation bilaterally, no rales, rhonchi, wheezing. CARDIOVASCULAR: Regular rate and rhythm without murmurs rubs or gallops. ABDOMINAL: Soft, nontender, nondistended, normal bowel sounds MUSCULOSKELETAL: Moves all extremities. Tenderness at right lateral lower back tenderness at right buttock. NEURO: Alert. Cranial nerves II through XII intact. Grossly intact SKIN: Warm, dry. Normal Color . Course Course Emergency Course: Patient was updated on the plan for treatment. Patient was provided medications for pain control in the emergency department. Patient was comfortable with the plan for close outpatient follow-up. Patient was also educated on reasons to return to the em
[2021-10-05] MEDS: KETOROLAC 30 MG/ML VIAL (*BKC) IM (07:45)
[2021-10-05] MEDS: CYCLOBENZAPRINE HCL 10 MG TABLET PO (07:45)
[2021-10-05] MEDS: DEXAMETHASONE 2 MG TABLET 6 MG PO (07:45)
[2021-10-05 08:27] VITALS: BP 142/92; PULSE 94; RESP 17; O2SAT 97
== END 2021-10-05 08:37 | disposition home or self-care (01) ==
LOC: ANHED 08:03
PROVIDERS: Emergency Provider Emergency Medicine; PCP Family Medicine
DX: M54.41 Lumbago with sciatica, right side (principal); I10 Essential (primary) hypertension; Z87.891 Personal history of nicotine dependence
CPT/HCPCS: 96372; 99283; A9270; J1885; J8540

== ENCOUNTER 2022-12-22 04:49 | Emergency (ER) | payer OTHER, SELFPAY ==
--- NOTE | ~2022-12-22 | XR_ITS ---
EXAMINATION: XR chest 2V DATE: 12/22/2022 07:10 INDICATION: Shortness of breath TECHNIQUE: PA and lateral views of the chest are obtained. COMPARISON: 12/04/2019 FINDINGS: The lungs are free of acute opacities. No pleural effusion or pneumothorax. The cardiomedia stinal silhouette is normal. There is moderate thoracic spondylosis. IMPRESSION: 1. No acute cardiopulmonary abnormality. Reviewed, dictated and finalized at location A.
--- NOTE | 2022-12-22 04:50 | ECG_ITS ---
Measurements Intervals [place] Rate: 72 P: 40 MS: 126 QRS: -23 QRSD: 97 T: 26 QT: 342 QTc: 376 Interpretive Statements SINUS RHYTHM BORDERLINE LEFT AXIS DEVIATION [QRS AXIS < -20] NONSPECIFIC T-WAVE ABNORMALITY COMPARED TO ECG 12/04/2019 18:02:45 NO SIGNIFICANT CHANGES Electronically Signed On 12-22-2022 14:54:01 CDT by Yevgeniy Saavedra M.D.
[2022-12-22 04:56] VITALS: BP 165/97; PULSE 69; RESP 16; TEMP 36.6; O2SAT 97
[2022-12-22 06:42] LABS: Basophils Absolute Auto 0.1 K/mm3 (0.0-0.1); Basophils Percent Auto 1.1 % (0.2-1.2); Eosinophils Absolute Auto 0.4 K/mm3 (0-0.3); Eosinophils Percent Auto 7.9 % (0-4.4); Hemoglobin 15.3 g/dL (14.0-18.0); Immature Granulocyte Absolute 0.02 K/mm3 (0.00-0.031); Immature Granulocyte Percent A 0.4 % (0-0.5); Lymphocytes Absolute Auto 1.56 K/mm3 (0.9-3.2); Lymphocytes Percent Auto 29.5 % (18.3-44.2); Mean Corpuscular Hemoglobin 30.9 pg (26-34); Mean Corpuscular Volume 90.9 fl (80-100); Mean Platelet Volume 10.1 fl (7.4-10.4); Monocytes Absolute Auto 0.5 K/mm3 (0.1-0.6); Monocytes Percent Auto 9.3 % (2.6-8.5); Neutrophils Absolute Auto 2.7 K/mm3 (1.3-6.7); Neutrophils Percent Auto 51.8 % (45.5-73.1); Platelet Count Result 191 k/mm3 (150-375); Red Blood Count 4.95 M/mm3 (4.6-6.20); Red Cell Distribution Width 12.8 % (11.5-14.5); White Blood Count 5.3 K/mm3 (4.5-10.0)
[2022-12-22] MEDS: ASPIRIN 81 MG CHEWABLE TABLET 324 MG PO (06:43)
[2022-12-22 06:46] VITALS: PULSE 69
[2022-12-22 06:53] LABS: Partial Thromboplastin Time 26.7 SECONDS (22.3-36.8); Prothrombin Time 13.3 Seconds (11.1-14.7)
[2022-12-22 06:56] LABS: Alanine Aminotransferase 35 U/L (6-50); Albumin Level 4.4 g/dL (3.5-5.1); Alkaline Phosphatase 56 U/L (38-126); Anion Gap 7 mmol/L (8-16); Aspartate Amino Transferase 33 U/L (17-59); Bilirubin,Total 0.7 mg/dL (0.2-1.3); Blood Urea Nitrogen 11 mg/dL (9-20); Calcium 8.6 mg/dL (8.4-10.2); Carbon Dioxide 26 mmol/L (22-30); Chloride 107 mmol/L (98-107); Estimated CRCL calculation 161 ml/min; Estimated Glomerular Filt Rate > 60; Glucose 120 mg/dL (65-110); Lipase 43 U/L (23-300); Magnesium 2.2 mg/dL (1.6-2.3); Sodium 140 mmol/L (137-145)
[2022-12-22 07:06] LABS: Troponin I < 0.012 ng/mL (0.000-0.034)
--- NOTE | 2022-12-22 07:07 | ED.ARRPALP ---
HPI - Arrhythmia/Palpitations General Chief Complaint: Arrhythmia/Palpitations Stated Complaint: irregular hr and sob Time Seen by Provider: 12/22/22 07:04 History of Present Illness HPI narrative: Patient with history of anxiety presents when he felt like his heart was skipping beats on his way to work, he got extremely anxious and came in. He has had episodes like this in the past, and has had Holter monitoring and even a catheterization by his head of stock without any obvious findings. He feels fine now that he is in the hospital Related Data Home Medications Medication Instructions Recorded Confirmed fish, borage, flaxseed oils-omega 1 cap PO DAILY 12/04/19 12/04/19 3,6,9 cb #1 400 mg-400 mg-400 mg cap ([place] 3-6-9) magnesium oxide 400 mg (241.3 mg 400 mg PO DAILY 12/04/19 12/04/19 magnesium) tablet metoprolol succinate 50 mg 50 mg PO DAILY 12/04/19 12/04/19 tablet,extended release 24 hr pantoprazole 40 mg tablet,delayed 40 mg PO DAILY 12/04/19 12/04/19 release Allergies Allergy/AdvReac Type Severity Reaction Status Date / Time No Known Allergies Allergy Verified 10/05/21 07:45 Review of Systems Review of Systems: CONST: No fever. HEENT: No sore throat C/V: Palpitation RESP: No cough GI: No abdominal : No dysuria. M/S: No joint pain. SKIN: No rash. NEURO: [No headache or focal numbness or weakness] PSYCH: Anxiety [facility] Past Medical History Medical History (Updated 12/22/22 @ 07:36 by Hanny Levi MD) Hypertension Surgical History Surgical History H/O cardiac catheterization Family History Family History Mother Hypertension Patient's mother is in good health Cerebrovascular accident Sibling Patient's sister is in good health Patient's brother is in good health Father Family history of lung cancer Social History Social History Smoking packs per day: 0.5 Smoking cigarettes per day: 10.0 Years smoked: 20 Smoking pack-years: 10.00 Smoking status: Former smoker Tobacco type: cigarettes Second hand tobacco smoke exposure: Yes Alcohol intake: current Gender identity (if verbalized by the patient): Male Exam Narrative: EXAMINATION OF ORGAN SYSTEMS/BODY AREAS: Constitutional: Vital signs per nursing GENERAL:[No acute distress, non-toxic appearing.] HEAD: Normal with no signs of head trauma. EYES: EOMI, conjunctiva normal ENT: Hearing grossly intact LUNGS: Nonlabored breathing. HEART: [Regular rate and rhythm], normal pulses radial and DP ABD: [Soft], [nontender to palpation] EXT: Normal range of motion SKIN: [No rashes or lesions.] NEURO: [Alert and oriented x 3. No gross focal sensory or strength deficits.] PSYCH: Normal affect Course Vital Signs Vital signs: Vital Signs Temperature 97.8 F 12/22/22 04:56 Pulse Rate 69 12/22/22 04:56 Respiratory Rate 16 12/22/22 04:56 Blood Pressure 165/97 H 12/22/22 04:56 Pulse Oximetry 97 12/22/22 04:56 Oxygen Delivery Room Air 12/22/22 04:56 Temperature 97.8 F 12/22/22 04:56 Pulse Rate 68 12/22/22 07:45 Respiratory Rate 16 12/22/22 07:45 Blood Pressure 146/94 H 12/22/22 07:45 Pulse Oximetry 100 12/22/22 07:45 Oxygen Delivery Room Air 12/22/22 04:56 MDM - Arrhythmia/Palpitations MDM Narrative Medical decision making narrative: Patient with history of anxiety/panic attacks, palpitations, presenting here with symptoms consistent with panic attack versus palpitations. On exam patient is well-appearing with normal vital signs. I will obtain cardiac work-up to rule out arrhythmia/ischemia, pneumothorax, or other cause of chest discomfort/shortness of breath. Chest x-ray on my independent interpretation does not show any acute abnormality, no pneumothorax or consolidation. Labs including tr
--- NOTE | 2022-12-22 07:08 | PC.NURSE ---
Patient stated he took one 81mg Aspirin this morning. Patient was given 243mg Aspirin chewable.
[2022-12-22 07:45] VITALS: BP 146/94; PULSE 68; RESP 16; O2SAT 100
== END 2022-12-22 07:46 | disposition home or self-care (01) ==
PROVIDERS: Emergency Medicine; Emergency Provider Emergency Medicine; PCP Family Medicine
DX: R00.2 Palpitations (principal); F41.9 Anxiety disorder, unspecified; I10 Essential (primary) hypertension; F17.210 Nicotine dependence, cigarettes, uncomplicated; R94.31 Abnormal electrocardiogram [ECG] [EKG]
CPT/HCPCS: 36415; 71046; 80053; 83690; 83735; 84484; 85025; 85610; 85730; 93005; 99284; A9270